=== PATIENT | male | born 2000 | race Hispanic/Latino ===

== ENCOUNTER 2021-01-03 03:18 | Emergency (ER) | payer SELFPAY ==
[2021-01-03] MEDS ORDERED: Bupivacaine 0.25% HCL 30 ML VIAL ONE (03:27)
[2021-01-03] MEDS ORDERED: Boostrix 0.5 ML (Tdap) VIAL ONE (03:43)
== END 2021-01-03 05:19 | disposition home or self-care (01) ==
LOC: CSHERS 03:18
DX: S01.511A Laceration without foreign body of lip, initial encounter (principal); R00.0 Tachycardia, unspecified; Y04.0XXA Assault by unarmed brawl or fight, initial encounter
CPT/HCPCS: 12011; 90471; 90715; S0020